=== PATIENT | female | born 1965 | race African-American/Black ===

== ENCOUNTER → 2016-07-10 16:04 | Outpatient (CLI) | payer MEDICARE, MEDICAID | END | disposition home or self-care (01) | LOC: D.LABREF 16:04 | DX: R60.0 Localized edema (principal); Z13.9 Encounter for screening, unspecified ==

== ENCOUNTER 2016-08-02 08:54 | Outpatient (CLI) | payer MEDICARE, MEDICAID | END 2016-08-02 10:50 | LOC: D.MAMMO 08:54 | DX: N63 Unspecified lump in breast (principal) ==

== ENCOUNTER 2016-11-12 13:16 | Emergency (ER) | payer MEDICARE, MEDICAID | END 2016-11-12 17:15 | disposition home or self-care (01) | LOC: D.ER 13:16 | DX: M79.662 Pain in left lower leg (principal); M17.12 Unilateral primary osteoarthritis, left knee; F17.200 Nicotine dependence, unspecified, uncomplicated ==

== ENCOUNTER 2016-12-11 16:41 | Emergency (ER) | payer MEDICARE, MEDICAID ==
[2016-12-11 17:06] LABS: BASOPHILS 0.4 % (0-2); EOSINOPHILS 4.7 % (0-7); HEMATOCRIT 42.3 % (36.0-48.0); HEMOGLOBIN 13.8 g/dL (12-16); IMMATURE GRANULOCYTES 0.2 % (0-5); LYMPHOCYTES 48.2 % (15-50); MCH 31.6 pg (26.0-34.0); MCHC 32.6 g/dL (31.0-37.0); MCV 96.8 fL (80.0-100.0); MEAN PLATELET VOLUME 11.6 fL (7.4-10.4); MONOCYTES 5.9 % (2-11); NEUTROPHILS 40.6 % (40-80); PLATELET COUNT 245 10x3/uL (130-400); RBC 4.37 10x6/uL (4.00-5.40); RDW 15.5 % (11.5-14.5)
[2016-12-11 17:31] LABS: ALBUMIN 3.1 g/dL (3.4-5.0); ALKALINE PHOSPHATASE 68 U/L (46-116); ALT (SGPT) 19 U/L (10-68); BILIRUBIN - TOTAL 0.14 mg/dL (0.2-1.3); CALC OSMOLALITY 284 mosm/kg (275-300); CALCIUM 8.2 mg/dL (8.5-10.1); CARBON DIOXIDE 28.3 mmol/L (21.0-32.0); CHLORIDE - SERUM 108 mmol/L (98-107); CREATININE - SERUM 1.1 mg/dL (0.6-1.3); GLUCOSE 108 mg/dL (74-106); POTASSIUM - SERUM 3.7 mmol/L (3.5-5.1); PROTEIN - SERUM 6.5 g/dL (6.4-8.2); SODIUM 143 mmol/L (136-145); UREA NITROGEN 10 mg/dL (7-18); eGFR NON AFRICAN AMERICAN 55 mL/min (90-120)
[2016-12-11 17:42] LABS: CKMB 0.9 U/L (0.0-3.6); CREATINE KINASE 286 UL (21-215); TROPONIN-I < 0.017 ng/mL (0.000-0.060)
[2016-12-11 18:23] LABS: APPEARANCE CLEAR (CLEAR); BILIRUBIN NEGATIVE (NEGATIVE); COLOR YELLOW (YELLOW); GLUCOSE NEGATIVE (NEGATIVE); KETONE NEGATIVE (NEGATIVE); NITRITE NEGATIVE (NEGATIVE); PROTEIN NEGATIVE (NEGATIVE); SPECIFIC GRAVITY 1.015 (1.005-1.020); UROBILINOGEN NORMAL (NORMAL)
[2016-12-11 18:25] LABS: BACTERIA MODERATE /hpf (NONE SEEN); EPITHELIAL CELLS 0-5 /hpf (0-5); MUCUS <1+ /lpf (NONE SEEN); RED CELLS - URINE 0-5 /hpf (0-5); WHITE CELLS - URINE 0-5 /hpf (0-5)
== END 2016-12-11 22:09 | disposition home or self-care (01) ==
LOC: D.ER 16:41
PROVIDERS: Nurse Practitioner Family
DX: R07.89 Other chest pain (principal); F17.200 Nicotine dependence, unspecified, uncomplicated; I44.5 Left posterior fascicular block

== ENCOUNTER → 2017-02-03 08:23 | Outpatient (CLI) | payer MEDICARE, MEDICAID | END | disposition home or self-care (01) | LOC: D.MRI 08:23 | DX: M25.562 Pain in left knee (principal) ==

== ENCOUNTER 2017-03-19 07:31 | Emergency (ER) | payer MEDICARE, MEDICAID ==
[2017-03-19 08:24] LABS: BASOPHILS 0.4 % (0-2); EOSINOPHILS 4.2 % (0-7); HEMATOCRIT 42.8 % (36.0-48.0); IMMATURE GRANULOCYTES 0.1 % (0-5); LYMPHOCYTES 37.7 % (15-50); MCH 30.6 pg (26.0-34.0); MCHC 32.7 g/dL (31.0-37.0); MCV 93.7 fL (80.0-100.0); MEAN PLATELET VOLUME 11.2 fL (7.4-10.4); MONOCYTES 6.5 % (2-11); NEUTROPHILS 51.1 % (40-80); PLATELET COUNT 292 10x3/uL (130-400); RBC 4.57 10x6/uL (4.00-5.40); RDW 14.2 % (11.5-14.5); WBC 8.2 10x3/uL (4.8-10.8)
[2017-03-19 08:34] LABS: ALBUMIN 3.4 g/dL (3.4-5.0); ANION GAP 10.1 mmol/L (8-16); BILIRUBIN - TOTAL 0.27 mg/dL (0.2-1.3); CALCIUM 8.7 mg/dL (8.5-10.1); CARBON DIOXIDE 34.6 mmol/L (21.0-32.0); CREATININE - SERUM 1.1 mg/dL (0.6-1.3); POTASSIUM - SERUM 3.7 mmol/L (3.5-5.1); PROTEIN - SERUM 7.3 g/dL (6.4-8.2)
== END 2017-03-19 09:20 | disposition home or self-care (01) ==
LOC: D.ER 07:31
PROVIDERS: Emergency Medicine
DX: M79.1 Myalgia (principal)

== ENCOUNTER → 2017-04-08 08:07 | Outpatient (CLI) | payer MEDICARE, MEDICAID | END | disposition home or self-care (01) | LOC: D.LAB 08:07 | DX: R31.1 Benign essential microscopic hematuria (principal) ==

== ENCOUNTER 2018-03-24 06:32 | Inpatient (IN) | payer MEDICARE ==
[~2018-03-24] VITALS: Ht 165.1 cm; Wt 133.8 kg
--- NOTE | 2018-03-24 06:45 | NUR ---
FLU SWAB AND STREP SWAB SENT TO LAB
--- NOTE | 2018-03-24 07:02 | NUR ---
REPORT GIVEN TO BALJINDER COLEMAN
[2018-03-24 07:12] LABS: ALBUMIN 3.2 g/dL (3.4-5.0); ANION GAP 13.6 mmol/L (8-16); BILIRUBIN - TOTAL 0.48 mg/dL (0.2-1.3); CALCIUM 7.8 mg/dL (8.5-10.1); CARBON DIOXIDE 25.9 mmol/L (21.0-32.0); CREATININE - SERUM 0.9 mg/dL (0.6-1.3); POTASSIUM - SERUM 3.5 mmol/L (3.5-5.1); PROTEIN - SERUM 7.2 g/dL (6.4-8.2)
[2018-03-24 07:13] LABS: BASOPHILS 0.2 % (0-2); EOSINOPHILS 2.2 % (0-7); HEMATOCRIT 40.5 % (36.0-48.0); HEMOGLOBIN 13.1 g/dL (12-16); IMMATURE GRANULOCYTES 0.3 % (0-5); LYMPHOCYTES 10.8 % (15-50); MCHC 32.3 g/dL (31.0-37.0); MCV 89.6 fL (80.0-100.0); MEAN PLATELET VOLUME 11.2 fL (7.4-10.4); MONOCYTES 4.1 % (2-11); NEUTROPHILS 82.4 % (40-80); PLATELET COUNT 257 10x3/uL (130-400); RBC 4.52 10x6/uL (4.00-5.40); RDW 16.3 % (11.5-14.5); WBC 12.1 10x3/uL (4.8-10.8)
[2018-03-24 07:23] LABS: PRO BNP 259 pg/mL (0-125); TROPONIN-I < 0.017 ng/mL (0.000-0.060)
--- NOTE | 2018-03-24 08:50 | NUR ---
ROCEPHIN INFUSION COMPLETED AT 0856
--- NOTE | 2018-03-24 09:55 | NUR ---
ZITHROMAX INFUSION COMPLETED AND STOPPED.
[2018-03-24 10:02] VITALS: BP 146/98
--- NOTE | 2018-03-24 11:36 | NUR ---
LUNCH TRAY PROV. PT C/O NAUSEA. PRN ZOFRAN TO BE ADMINISTERED PER EMAR.
[2018-03-24] MEDS ORDERED: SYNTHROID125 MCG PO (15:28)
[2018-03-24] MEDS ORDERED: VITAMIN D31000 UNI2 PO (15:29)
[2018-03-24] MEDS ORDERED: PRAVACHOL80 MG PO (15:30)
[2018-03-24 15:31] VITALS: BMI 49.1
--- NOTE | 2018-03-24 19:18 | NUR ---
PATIENT IS RESTING IN HER BED. BED IS DOWN LOW WITH SIDE RAILS ARE UP X2. CALL LIGHT IS IN REACH.
[2018-03-24 20:00] VITALS: BP 140/89
[2018-03-24 23:30] VITALS: BP 129/53
--- NOTE | 2018-03-25 04:06 | NUR ---
PATIENT IS SLEEPING. BED IS DOWN LOW WITH SIDE RAILS UP X2. CALL LIGHT IS IN REACH.
[2018-03-25 04:30] VITALS: BP 142/68
[2018-03-25 05:56] LABS: BASOPHILS 0 % (0-2); EOSINOPHILS 0 % (0-7); HEMOGLOBIN 12.2 g/dL (12-16); IMMATURE GRANULOCYTES 0.3 % (0-5); LYMPHOCYTES 11.2 % (15-50); MCH 28.9 pg (26.0-34.0); MCHC 32.1 g/dL (31.0-37.0); MEAN PLATELET VOLUME 11.7 fL (7.4-10.4); MONOCYTES 2.1 % (2-11); NEUTROPHILS 86.4 % (40-80); PLATELET COUNT 262 10x3/uL (130-400); RBC 4.22 10x6/uL (4.00-5.40); RDW 17.1 % (11.5-14.5)
[2018-03-25 05:59] LABS: WBC 6.5 10x3/uL (4.8-10.8)
[2018-03-25 06:21] LABS: ALBUMIN 2.9 g/dL (3.4-5.0); ANION GAP 14.6 mmol/L (8-16); BILIRUBIN - TOTAL 0.19 mg/dL (0.2-1.3); CALCIUM 7.8 mg/dL (8.5-10.1); CARBON DIOXIDE 24.7 mmol/L (21.0-32.0)
[2018-03-25 06:22] LABS: POTASSIUM - SERUM 4.3 mmol/L (3.5-5.1)
[2018-03-25 09:50] VITALS: BP 130/57
--- NOTE | 2018-03-25 09:51 | MORECARE ---
CASE MANAGEMENT DISCHARGE SUMMARY PATIENT: DEYVI PHILLIPS UNIT: [id number] ADM DATE: 03/24/18 AGE: 52 : 61 SEX: F ROOM/BED: D.1210 AUTHOR: ARTURO SHEN PHYSICIAN: REFERRING PHYSICIAN: EMELY YANG DO DATE OF SERVICE: 03/25/18 Discharge Plan Patient Name: DEYVI [facility]ILLIPS [facility] [facility] 1965 Planned Disposition: Home Anticipated Discharge Date: Discharge Date: Expected LOS: Initial Reviewer: [email or web address] Initial Review Date: 03/25/2018 Generated: 03/25/18 10:51 am DCPIA - Discharge Planning Initial Assessment Updated by [email or web address]: Carlita Paz on 03/25/18 9:50 am * Is the patient Alert and Oriented? Yes * PCP REMINGTON * Pharmacy [facility] [address] * Preadmission Environment Home with Family * ADLs Independent * Equipment None * Community resources currently utilized None * Additional services required to return to the preadmission environment? No * Can the patient safely return to the preadmission environment? Yes * Has this patient been hospitalized within the prior 30 days at any hospital? No Patient Name: DEYVI PHILLIPS Page 24416 at 0951 All edits/amendments must be made on the electronic document DICTATION DATE: 03/25/18950 DIESEL PLANT OPERATOR: SANGEETHA 03/25/18950 RPT#: [id number] DC DATE: STATUS: ADM IN [facility] [address] [place] [address] END OF REPORT
[2018-03-25 20:00] VITALS: BP 142/57
[2018-03-26] VITALS: BP 128/67
--- NOTE | 2018-03-26 02:34 | NUR ---
THE PATIENT IS WATCHING TELEVISION AND APPEARS COMFORTABLE.
[2018-03-26 04:00] VITALS: BP 145/65
[2018-03-26 07:38] LABS: BASOPHILS 0.1 % (0-2); EOSINOPHILS 0 % (0-7); HEMATOCRIT 39.9 % (36.0-48.0); HEMOGLOBIN 12.5 g/dL (12-16); IMMATURE GRANULOCYTES 0.2 % (0-5); LYMPHOCYTES 13.7 % (15-50); MCH 28.8 pg (26.0-34.0); MCHC 31.3 g/dL (31.0-37.0); MCV 91.9 fL (80.0-100.0); MEAN PLATELET VOLUME 11.2 fL (7.4-10.4); MONOCYTES 8.5 % (2-11); NEUTROPHILS 77.5 % (40-80); PLATELET COUNT 255 10x3/uL (130-400); RBC 4.34 10x6/uL (4.00-5.40); RDW 17.3 % (11.5-14.5)
[2018-03-26 07:42] LABS: WBC 9.1 10x3/uL (4.8-10.8)
--- NOTE | 2018-03-26 07:50 | NUR ---
ASSESSMENT COMPLETE. IV TO L AC PATENT. DROPLET ISOLATION PRECAUTIONS IN PLACE. O2 2L NC IN PLACE. NON-PRODUCTIVE COUGH. DENIES ANY NEEDS AT THIS TIME.
[2018-03-26 07:57] LABS: ANION GAP 16.2 mmol/L (8-16); BILIRUBIN - TOTAL 0.15 mg/dL (0.2-1.3); CARBON DIOXIDE 24.4 mmol/L (21.0-32.0); CREATININE - SERUM 0.9 mg/dL (0.6-1.3); POTASSIUM - SERUM 4.6 mmol/L (3.5-5.1); PROTEIN - SERUM 6.7 g/dL (6.4-8.2)
[2018-03-26 10:06] VITALS: BP 146/65
--- NOTE | 2018-03-26 12:00 | NUR ---
NO CHANGES NOTED AT THIS TIME.
[2018-03-26 12:19] VITALS: BP 154/68
[2018-03-26 13:39] VITALS: Ht 165.1 cm; Wt 133.8 kg
--- NOTE | 2018-03-26 14:14 | NUR ---
NO CHANGES NOTED.
[2018-03-26 17:44] VITALS: BP 158/68
--- NOTE | 2018-03-26 18:55 | NUR ---
NO CHANGES NOTED AT THIS TIME.
[2018-03-26 21:13] VITALS: BP 155/75
[2018-03-27 07:51] LABS: ALBUMIN 2.8 g/dL (3.4-5.0); ALKALINE PHOSPHATASE 75 U/L (46-116); ALT (SGPT) 20 U/L (10-68); BILIRUBIN - TOTAL 0.19 mg/dL (0.2-1.3); CALC OSMOLALITY 286 mosm/kg (275-300); CALCIUM 7.7 mg/dL (8.5-10.1); CHLORIDE - SERUM 105 mmol/L (98-107); CREATININE - SERUM 0.8 mg/dL (0.6-1.3); GLUCOSE 183 mg/dL (74-106); POTASSIUM - SERUM 4.1 mmol/L (3.5-5.1); PROTEIN - SERUM 6.5 g/dL (6.4-8.2); SODIUM 141 mmol/L (136-145); UREA NITROGEN 16 mg/dL (7-18); eGFR NON AFRICAN AMERICAN 79 mL/min (90-120)
[2018-03-27 07:52] LABS: BASOPHILS 0 % (0-2); EOSINOPHILS 0 % (0-7); HEMOGLOBIN 11.9 g/dL (12-16); IMMATURE GRANULOCYTES 0.3 % (0-5); LYMPHOCYTES 15.9 % (15-50); MCH 28.4 pg (26.0-34.0); MCHC 31.3 g/dL (31.0-37.0); MCV 90.7 fL (80.0-100.0); MONOCYTES 7.5 % (2-11); NEUTROPHILS 76.3 % (40-80); PLATELET COUNT 269 10x3/uL (130-400); RBC 4.19 10x6/uL (4.00-5.40); RDW 17.2 % (11.5-14.5); WBC 7.4 10x3/uL (4.8-10.8)
[2018-03-27 08:00] VITALS: BP 133/52
[2018-03-27] MEDS ORDERED: TAMIFLU75 MG PO (11:45)
[2018-03-27] MEDS ORDERED: TESSALON PERLE100 MG PO (11:46)
[2018-03-27] MEDS ORDERED: MUCINEX600 MG PO (11:46)
[2018-03-27] MEDS ORDERED: VENTOLIN HFA18 GM INH (11:46)
[2018-03-27] MEDS ORDERED: STERAPRED DS 1010 MG PO (11:47)
[2018-03-27] MEDS ORDERED: DOXYCYCLINE HY100 M2 PO (11:47)
[2018-03-27 12:00] VITALS: BP 155/66
--- NOTE | 2018-03-27 14:21 | NUR ---
D/C PTS L.AC PIV WITH CATHETER TIP FULLY INTACT. PT IS COLLECTING HER BELONGINGS AND WAITING ON HER TRANSPORTATION. DISCHARGE TEACHING PROVIDED AND PAPERS SIGNED. PT VERBALIZED UNDERSTANDING AND DENIES ANY QUESTIONS OR CONERNS. WILL CTM.
--- NOTE | 2018-03-27 16:12 | MORECARE ---
CASE MANAGEMENT DISCHARGE SUMMARY PATIENT: DEYVI PHILLIPS UNIT: [id number] ADM DATE: 03/24/18 AGE: 52 : 61 SEX: F ROOM/BED: D.1210 AUTHOR: ARTURO SHEN PHYSICIAN: REFERRING PHYSICIAN: EMELY YANG DO DATE OF SERVICE: 03/27/18 Discharge Plan Patient Name: DEYVI PHILLIPS Facility: [facility]:[place] : 1965 Planned Disposition: Home Anticipated Discharge Date: Discharge Date: 03/27/2018 Expected LOS: Initial Reviewer: [email or web address] Initial Review Date: 03/25/2018 Generated: 03/27/18 5:12 pm Comments DCP- Discharge Planning Updated by [email or web address]: Carlita Paz on 03/25/18 8:[address] Patient Name: DEYVI PHILLIPS Admission Status: ER Accout number: [id number] Admission Date: 03-24-2018 : 1965 Admission Diagnosis: Attending: EMELY YANG Current LOS: 1 Anticipated DC Date: Planned Disposition: Home Primary Insurance: MEDICARE A & B Discharge Planning Comments: CM MET WITH PATIENT ABOUT DC PLANNING/NEEDS. STATES PLANS TO DC TO HOME WITH FAMILY WHEN BETTER. DENIES ANY NEEDS AT THIS TIME. CM WILL FOLLOW AND ASSIST NEEDED WITH DC PLANNING/NEEDS. Basket Braider: Carlita Paz DCPIA - Discharge Planning Initial Assessment Updated by [email or web address]: Carlita Paz on 03/25/18 9:50 am * Is the patient Alert and Oriented? Yes * PCP ALIYAHO * Pharmacy [facility] [address] * Preadmission Environment Home with Family * ADLs Independent * Equipment None * Community resources currently utilized None * Additional services required to return to the preadmission environment? No * Can the patient safely return to the preadmission environment? Yes * Has this patient been hospitalized within the prior 30 days at any hospital? No Last DP export: 03/25/18 8:51 a Patient Name: DEYVI PHILLIPS Page 58906 at 1612 All edits/amendments must be made on the electronic document DICTATION DATE: 03/27/18 1612 CURING PICKLING PACKER: SANGEETHA 03/27/18 1612 RPT#: [id number] DC DATE:03/27/18 STATUS: DIS IN [facility] [address] [place] [address] END OF REPORT
== END 2018-03-27 15:18 | disposition home or self-care (01) | DRG 193 ==
LOC: D.ER 06:32 → D.EDHOLD 08:17 → D.M3 08:17
PROVIDERS: Family Medicine; ADMIT Family Medicine
DX: J10.00 Influenza due to other identified influenza virus with unspecified type of pneumonia (principal); J96.01 Acute respiratory failure with hypoxia; Z68.42 Body mass index [BMI] 45.0-49.9, adult; E86.0 Dehydration; I10 Essential (primary) hypertension; E66.9 Obesity, unspecified

== ENCOUNTER → 2018-08-14 10:52 | Outpatient (CLI) | payer MEDICARE ==
[2018-03-26 13:39] VITALS: BMI 49.0
[~2018-08-14 10:52] MED LIST: DOXYCYCLINE HY100 M2 PO; MUCINEX600 MG PO; PRAVACHOL80 MG PO; STERAPRED DS 1010 MG PO; SYNTHROID125 MCG PO; TAMIFLU75 MG PO; TESSALON PERLE100 MG PO; VENTOLIN HFA18 GM INH; VITAMIN D31000 UNI2 PO
== END | disposition home or self-care (01) ==
LOC: D.MRI 08-11 11:30
PROVIDERS: ATTEND Nurse Practitioner Family
DX: M25.562 Pain in left knee (principal)

== ENCOUNTER → 2018-08-18 15:46 | Outpatient (CLI) | payer MEDICARE ==
[2018-03-26 13:39] VITALS: BMI 49.0
== END | disposition home or self-care (01) ==
LOC: D.LABREF 15:46
PROVIDERS: ATTEND Orthopaedic Surgery
DX: M17.12 Unilateral primary osteoarthritis, left knee (principal); Z11.8 Encounter for screening for other infectious and parasitic diseases

== ENCOUNTER 2018-09-09 16:33 | Inpatient (IN) | payer MEDICARE ==
[~2018-09-09] VITALS: Ht 165.1 cm; Wt 135.2 kg
[2018-09-15] MEDS ORDERED: LIPITOR20 MG PO (16:12)
[2018-09-15] MEDS ORDERED: CALCIUM 600 +1 EAC3 PO (16:13)
[2018-09-16 09:13] LABS: BASOPHILS 0.6 % (0-2); EOSINOPHILS 3.4 % (0-7); HEMOGLOBIN 13.3 g/dL (12-16); IMMATURE GRANULOCYTES 0.2 % (0-5); LYMPHOCYTES 38.5 % (15-50); MCH 30.4 pg (26.0-34.0); MCHC 33.3 g/dL (31.0-37.0); MCV 91.3 fL (80.0-100.0); MEAN PLATELET VOLUME 11.1 fL (7.4-10.4); MONOCYTES 7.3 % (2-11); RBC 4.38 10x6/uL (4.00-5.40); RDW 15.8 % (11.5-14.5); WBC 8.8 10x3/uL (4.8-10.8)
[2018-09-16 09:16] LABS: PLATELET COUNT 207 10x3/uL (130-400)
[2018-09-16 09:19] LABS: CALC OSMOLALITY 283 mosm/kg (275-300); CALCIUM 7.8 mg/dL (8.5-10.1); CHLORIDE - SERUM 108 mmol/L (98-107); CREATININE - SERUM 0.8 mg/dL (0.6-1.3); SODIUM 142 mmol/L (136-145); UREA NITROGEN 13 mg/dL (7-18); eGFR NON AFRICAN AMERICAN 79 mL/min (90-120)
[2018-09-16 09:21] LABS: GLUCOSE 119 mg/dL (74-106)
[2018-09-16 09:24] LABS: APTT 26.1 SECONDS (22.8-39.4); INR 1.01 (0.85-1.17); PROTIME 12.8 SECONDS (11.6-15.0)
[2018-09-16 10:02] LABS: APPEARANCE CLEAR (CLEAR); BILIRUBIN NEGATIVE (NEGATIVE); COLOR YELLOW (YELLOW); GLUCOSE NEGATIVE (NEGATIVE); KETONE NEGATIVE (NEGATIVE); NITRITE NEGATIVE (NEGATIVE); PROTEIN NEGATIVE (NEGATIVE); SPECIFIC GRAVITY 1.015 (1.005-1.020); UROBILINOGEN NORMAL (NORMAL)
[2018-09-16 10:06] LABS: BACTERIA FEW /hpf (NONE SEEN); EPITHELIAL CELLS OCC /hpf (0-5); MUCUS <1+ /lpf (NONE SEEN); RED CELLS - URINE OCC /hpf (0-5); WHITE CELLS - URINE NSEEN /hpf (0-5)
[2018-09-22 13:35] VITALS: BP 134/72; BMI 49.6
--- NOTE | 2018-09-22 15:20 | NUR ---
PLASMA BLADE SET TO 6/8 BOVIE PAD RIGHT THIGH [id number] EXP 03/18/2020 PREPPED LEFT LEG FROM UPPER THIGH TO TOES CIRCUMFERENTIALLY
[2018-09-22 17:56] VITALS: BP 137/69
--- NOTE | 2018-09-22 20:28 | NUR ---
AROUSES EASILLY TO VERBAL STIMULI. NO COMPLAITNS VOICED. RESP UNLABORED. O2 @ 2L PER NC ON. NO DISTRESS NOTED. CHILO WRAP INTACT TO LEFT KNEE WITHOUT DRAINAGE NOTED. CPM PLACED ON LLE AT THIS TIME. CL IN REACH
[2018-09-22 23:41] VITALS: BP 137/69; BMI 49.6
--- NOTE | 2018-09-23 03:30 | NUR ---
I have reviewed this patient and I concur with the Shift Assessment completed by the Licensed Practical Nurse today this shift.
[2018-09-23 04:00] VITALS: BP 118/58
--- NOTE | 2018-09-23 04:30 | NUR ---
I have reviewed this patient and I concur with the Shift Assessment completed by the Licensed Practical Nurse today this shift.
[2018-09-23 04:40] LABS: BASOPHILS 0.2 % (0-2); EOSINOPHILS 0.1 % (0-7); HEMATOCRIT 36.4 % (36.0-48.0); HEMOGLOBIN 11.8 g/dL (12-16); IMMATURE GRANULOCYTES 0.4 % (0-5); LYMPHOCYTES 11.8 % (15-50); MCH 29.8 pg (26.0-34.0); MCHC 32.4 g/dL (31.0-37.0); MCV 91.9 fL (80.0-100.0); MEAN PLATELET VOLUME 10.8 fL (7.4-10.4); MONOCYTES 5.3 % (2-11); NEUTROPHILS 82.2 % (40-80); RBC 3.96 10x6/uL (4.00-5.40); RDW 16.1 % (11.5-14.5); WBC 11.3 10x3/uL (4.8-10.8)
[2018-09-23 04:52] LABS: PLATELET COUNT 254 10x3/uL (130-400)
[2018-09-23 05:07] LABS: ALBUMIN 2.7 g/dL (3.4-5.0); ANION GAP 8.9 mmol/L (8-16); BILIRUBIN - TOTAL 0.2 mg/dL (0.2-1.3); CALCIUM 7.3 mg/dL (8.5-10.1); CARBON DIOXIDE 28.9 mmol/L (21.0-32.0); CREATININE - SERUM 0.9 mg/dL (0.6-1.3); POTASSIUM - SERUM 4.8 mmol/L (3.5-5.1)
[2018-09-23 08:43] VITALS: BP 134/59
[2018-09-23 12:43] VITALS: BP 130/58
[2018-09-23 14:46] VITALS: BP 131/67
--- NOTE | 2018-09-23 14:56 | OP ---
PATIENT NAME: DEYVI GONZALES MEDICAL RECORD: [id number] :61 LOCATION:D[id number] ADMISSION DATE:09/22/18 SURGEON: EUGENE ONEILL DO DATE OF OPERATION: 09/22/2018 PROCEDURE PERFORMED: Left total knee arthroplasty. PREOPERATIVE DIAGNOSIS: Left knee osteoarthritis. POSTOPERATIVE DIAGNOSIS: Left knee osteoarthritis. INDICATION: Ms. Gonzales is a 53-year-old female that has tried all manners of nonoperative treatment including injections and home physical therapy to no avail. She is tired of it affecting her activities of daily living and would like something done surgically. She was informed of the risks including infection, bleeding, damage to nerves and vessels, need for further surgery, failure of implants, blood clots, and even . She signed the consent. SURGEON: Eugene Oneill DO DESCRIPTION OF PROCEDURE: The patient was taken to the operative suite. After getting a block by anesthesia in the preoperative area, given 3 grams of Ancef and 80 mg of gentamicin preoperatively. The left lower extremity was then prepped and draped in sterile fashion after she was sedated and LMA was placed. Time-out was performed and everyone was in agreement of correct side, site, patient, and procedure. An incision was then marked on the anterior knee and covered in Ioban. A 10 blade scalpel was then used to dissect down from the skin down to the capsule. The medial parapatellar approach was used with a fresh 10 blade scalpel. Any bleeders were coagulated with the Aquamantys. The patella was then everted and part of the fat pad was removed and milled down in order to fit the implant. The femur was then flexed up and exposed. The drill was used to enter the femoral canal and a distal femur cut was made. The distal femur was then removed and the tibia was then cut. Once the proximal tibia was removed, the knee was brought to extension and a lamina securities sales associate was used to spread the knee and the menisci were removed. Any bleeding was coagulated with Aquamantys and then a 10 extension block fit very well. The knee was then flexed up and the knee was measured to be 65. A 4-in-1 cutting block was then put. Matthew wing was used to ensure there was no notching and the 65 was cut. The excess bone was removed. The implant trial was put on and the tibia was floated in and ranged. Once this was floated in and ranged, the rotation was marked. The tibial component was removed and trial was removed and the patella was drilled. The lugholes were then drilled on the femur and this was removed. The tibia was then exposed and sized to be 71. A cruciate punch was then used and then the cement was mixed. The knee was thoroughly irrigated and the 71 tibia was impacted into place with cement on that in the tibia. Excess cement was removed and the femur was impacted on. Once the femur was impacted into place, the poly was put in between. The knee was brought to extension and the patella was cemented in. A squeezer was held while the cement dried on the patella. Excess cement was removed from it and on the tibia at that time. The knee was thoroughly irrigated and bleeding was coagulated with Aquamantys. After the cement had hardened, I then trialed the 10 poly and it fit pretty well, but the 12 was better, I went with 12 E-poly, anterior stabilized bearing, and this was locked into place. Once this was locked into place, vancomycin and tobramycin powder was placed in the knee as well as Surgicel powder. Then, the capsule was closed with 2-0 Ethibond in a [id number] fashion. The skin was OPERATIVE REPORT [id number] DEYVI GONZALES then closed with 2-0 Vicryl in an inverted interrupted fashion. A ZipLine was placed on the knee. Adaptic, 4 x 4s, ABD, Webril, and Donnell wrap were then placed on the knee. SP hose stockings were placed on the knee. The patient was awakened and taken to recovery in stable condition. BLOOD LOSS: Approximately 350 mL. COMPLICATIONS: None. TRANSINT:[id number] Voice Confirmation ID: [id number] DOCUMENT ID: [id number] EUGNEE ONEILL DO at 1456 CC: [id number] DICTATION DATE: 09/22/181648 BUCKLE STRAP PUNCHER: 09/22/182103 [facility] [place] [address] [place] [address]
[2018-09-23 20:00] VITALS: BP 156/63
--- NOTE | 2018-09-23 20:37 | NUR ---
AWAKE,ALERT.WATCHING TV WITHOUT COMPLAINTS VOICED. RESP EVEN AND UNALBORED. NO DISTRESS NOTED. CHILO WRAP DRESSING INTACT TO LEFT KNEE WIHTOUT DRAINAGE NOTED. CPM IN PROGRESS AT THIS TIME. TOLERATING WELL. CL IN REACH
[2018-09-24] VITALS: BP 129/85
[2018-09-24 03:53] VITALS: BP 111/70
[2018-09-24 05:01] LABS: BASOPHILS 0.2 % (0-2); EOSINOPHILS 1.9 % (0-7); HEMATOCRIT 33.5 % (36.0-48.0); HEMOGLOBIN 10.8 g/dL (12-16); IMMATURE GRANULOCYTES 0.3 % (0-5); LYMPHOCYTES 33.4 % (15-50); MCH 29.9 pg (26.0-34.0); MCHC 32.2 g/dL (31.0-37.0); MCV 92.8 fL (80.0-100.0); MEAN PLATELET VOLUME 11.1 fL (7.4-10.4); MONOCYTES 9.1 % (2-11); NEUTROPHILS 55.1 % (40-80); PLATELET COUNT 229 10x3/uL (130-400); RBC 3.61 10x6/uL (4.00-5.40); RDW 16.3 % (11.5-14.5)
[2018-09-24 05:23] LABS: ALBUMIN 2.6 g/dL (3.4-5.0); ANION GAP 6.1 mmol/L (8-16); BILIRUBIN - TOTAL 0.21 mg/dL (0.2-1.3); CALCIUM 7.2 mg/dL (8.5-10.1); CARBON DIOXIDE 32.1 mmol/L (21.0-32.0); CREATININE - SERUM 0.9 mg/dL (0.6-1.3); POTASSIUM - SERUM 4.2 mmol/L (3.5-5.1); PROTEIN - SERUM 5.8 g/dL (6.4-8.2)
[2018-09-24 10:02] VITALS: BP 131/67
[2018-09-24 13:20] VITALS: BP 140/74
[2018-09-24 16:59] VITALS: BP 135/73
[2018-09-24 21:44] VITALS: BP 138/50
[2018-09-25 00:56] VITALS: BP 146/50
[2018-09-25 05:00] VITALS: BP 135/65
[2018-09-25 05:58] LABS: BASOPHILS 0.2 % (0-2); EOSINOPHILS 2.5 % (0-7); HEMATOCRIT 33.9 % (36.0-48.0); HEMOGLOBIN 10.7 g/dL (12-16); IMMATURE GRANULOCYTES 0.2 % (0-5); LYMPHOCYTES 32.6 % (15-50); MCH 29.9 pg (26.0-34.0); MCHC 31.6 g/dL (31.0-37.0); MCV 94.7 fL (80.0-100.0); MEAN PLATELET VOLUME 11.1 fL (7.4-10.4); MONOCYTES 9.9 % (2-11); NEUTROPHILS 54.6 % (40-80); PLATELET COUNT 217 10x3/uL (130-400); RBC 3.58 10x6/uL (4.00-5.40); RDW 16.6 % (11.5-14.5); WBC 9.1 10x3/uL (4.8-10.8)
--- NOTE | 2018-09-25 06:08 | NUR ---
I have reviewed this patient and I concur with the Shift Assessment completed by the Licensed Practical Nurse today this shift.
[2018-09-25 06:17] LABS: ALBUMIN 2.6 g/dL (3.4-5.0); ANION GAP 7.9 mmol/L (8-16); BILIRUBIN - TOTAL 0.3 mg/dL (0.2-1.3); CALCIUM 7.4 mg/dL (8.5-10.1); CREATININE - SERUM 0.9 mg/dL (0.6-1.3); POTASSIUM - SERUM 3.9 mmol/L (3.5-5.1); PROTEIN - SERUM 5.8 g/dL (6.4-8.2)
--- NOTE | 2018-09-25 07:33 | NUR ---
AWAKE AND ALERT. ORIENTED X3. NO C/O AT THIS TIME. CPM HAS MALFUNCTIONED AND IS OFF. LUNGS ARE CLEAR BILATERALLY, NO COUGH NOTED. SKIN IS INTACT WITHOUT REDNESS EXCEPT INCISION TO LEFT KNEE WHICH HAS A DRY INTACT DRESSING IN PLACE. SL TO LEFT FOREARM IS PATENT WTIHOUT REDNESS AT INSERTION SITE. UP TO BR WIHT ONE PERSON MIN ASSIST. DENIES NEEDS.
--- NOTE | 2018-09-25 07:45 | NUR ---
REQUESTED BREAKTHRU PAIN MED. GIVEN 15MG TORADOL SLOW IVP FOR SAME. WILL MONITOR.
[2018-09-25 09:22] VITALS: BP 147/60
--- NOTE | 2018-09-25 10:00 | NUR ---
AMBULATED IN HALLWAY WITH PT. DENIES NEEDS.
--- NOTE | 2018-09-25 12:30 | NUR ---
ATE MOST OF LUNCH. NO CHANGES NOTED. DENIES NEEDS.
--- NOTE | 2018-09-25 12:32 | NUR ---
OT NOTE: MIN ASSIST FOR BED MOB; ABLE TO AMB WITH RW AND MIN/CGA, HOWEVER, ONLY ABLE TO AMB APPROX 50-60 FT BEFORE NEEDING TO SIT DOWN DUE TO FATIGE. PT EXPLAINS TO THERAPIST THAT SHE WILL BE GOING HOME ALONE HER FAMILY WORKS DURING THE DAY. STATES THAT SHE IS FEARFUL OF RETURNING HOME ALONE BECAUSE SHE FEELS THAT SHE WILL BE UNABLE TO CARE FOR HERSELF WHEN IT COMES TO BATHING AND PREPARING MEALS. SHE STATES THAT SHE FEELS WEAKER AND IS MORE EASILY SOB THAN PRIOR TO SURGERY. RIK ANDERSON, OTR/L
[2018-09-25 12:48] VITALS: BP 119/49
[2018-09-25 13:06] VITALS: Ht 165.1 cm; Wt 135.2 kg
--- NOTE | 2018-09-25 14:06 | MORECARE ---
CASE MANAGEMENT DISCHARGE SUMMARY PATIENT: DEYVI PHILLIPS UNIT: [id number] ADM DATE: 09/22/18 AGE: 53 : 61 SEX: F ROOM/BED: D.2205 AUTHOR: ARTURO SHEN PHYSICIAN: REFERRING PHYSICIAN: CARTER ONEILL DO DATE OF SERVICE: 09/25/18 Discharge Plan Patient Name: DEYVI PHILLIPS [facility] [facility] 1965 Planned Disposition: [facility]it[facility] Facility Anticipated Discharge Date: Discharge Date: Expected LOS: Initial Reviewer: [email or web address] Initial Review Date: 09/22/2018 Generated: 09/25/18 3:06 pm DCPIA - Discharge Planning Initial Assessment Updated by [email or web address]: Cora Solis on 09/25/18 2:04 pm * Is the patient Alert and Oriented? Yes * How many steps to enter\exit or inside your home? * PCP REMINGTON * [facility] * Preadmission Environment Home Alone * ADLs Independent * Equipment Bedside Commode Rolling Walker * List name and contact numbers for known caregivers / representatives who currently or will assist patient after discharge: CPM ICE MACHINE * Verbal permission to speak to the caregivers and representatives has been obtained from the patient. N/A * Community resources currently utilized None * Additional services required to return to the preadmission environment? Yes * Can the patient safely return to the preadmission environment? No * Has this patient been hospitalized within the prior 30 days at any hospital? No External Providers External Provider: [facility] Next Contact Date: Service Request Date: Service Type: Resolution: Reviewer: Comments: Patient Name: DEYVI PHILLIPS Page 32650 at 1406 All edits/amendments must be made on the electronic document DICTATION DATE: 09/25/181404 PROPERTY MANAGEMENT SUPERVISOR: ASNGEETHA 09/25/18 140 RPT#: [id number] DC DATE: STATUS: ADM IN [facility] [address] [place] [address] END OF REPORT
--- NOTE | 2018-09-25 14:14 | MORECARE ---
CASE MANAGEMENT DISCHARGE SUMMARY PATIENT: DEYVI PHILLIPS UNIT: [id number] ADM DATE: 09/22/18 AGE: 53 : 61 SEX: F ROOM/BED: D.220 AUTHOR: ACDOC PHYSICIAN: REFERRING PHYSICIAN: CARTER ONEILL DO DATE OF SERVICE: 09/25/18 Discharge Plan Patient Name: DEYVI PHILLIPS Facility: [facility]:[place] : 1965 Planned Disposition: Nursing Home Facility Anticipated Discharge Date: Discharge Date: Expected LOS: Initial Reviewer: [email or web address] Initial Review Date: 09/22/2018 Generated: 09/25/18 3:14 pm Comments DCP- Discharge Planning Updated by [email or web address]: Cora Solis on 09/25/18 1:[address] Patient Name: DEYVI PHILLIPS Admission Status: Elective Accout number: [id number] Admission Date: 09-22-2018 : 1965 Admission Diagnosis:UNILATERAL PRIMARY OSTEOARTHRITIS, LEFT KNEE Attending: CARTER ONEILL Current LOS: 3 Anticipated DC Date: Planned Disposition: Nursing Home Facility Primary Insurance: [facility] MEDICARE SOLUTIONS Discharge Planning Comments: CM met with patient to complete initial dc planning assessment. CM educated patient on the CM role and verbal consent given by patient to complete assessment. Patient lives at home where she is independent with her care. She does live home alone. At discharge patient plans to go to [facility] to do her rehab and feels this is a safe discharge. CM discussed availability of home health, rehab services, and medical equipment. She has a walker and a BSC, CPM and Ice Machine that was set up be Dr Oneill's office. IMM served and explained. SOUTH signed and placed in chart. Patient denied known discharge needs at this time. CM will continue to follow and will assist as needed with dc plans/needs. Paper Sorter: Cora Solis DCPIA - Discharge Planning Initial Assessment Updated by [email or web address]: Cora Solis on 09/25/18 2:04 pm * Is the patient Alert and Oriented? Yes * How many steps to enter\exit or inside your home? * PCP REMINGTON * [facility] [address] * Preadmission Environment Home Alone * ADLs Independent * Equipment Bedside Commode Rolling Walker * List name and contact numbers for known caregivers / representatives who currently or will assist patient after discharge: CPM ICE MACHINE * Verbal permission to speak to the caregivers and representatives has been obtained from the patient. N/A * Community resources currently utilized None * Additional services required to return to the preadmission environment? Yes * Can the patient safely return to the preadmission environment? No * Has this patient been hospitalized within the prior 30 days at any hospital? No Coverage Notice Reviewer: [email or web address] Solis Notice Issued Date-Time: 09/25/2018 8:50 Notice Type: IM Discharge Notice Notice Delivered To: Patient Relationship to Patient: Website Developer Name: Delivery Method: HAND - Hand Delivered Divya Days: Prior Verbal Notification: Recipient Understood Notice: Yes Recipient Signature: Yes Med Rec Note Co-signed by Attending: Coverage Notice Comment: Reviewer: AMERICA Solis Notice Issued Date-Time: 09/25/2018 8:50 Notice Type: Patient Choice Letter Notice Delivered To: Patient Relationship to Patient: Website Developer Name: Delivery Method: HAND - Hand Delivered Idvya Days: Prior Verbal Notification: Recipient Understood Notice: Yes Recipient Signature: Yes Med Rec Note Co-signed by Attending: Coverage Notice Comment: [place] Last DP export: 09/25/18 1:06 p Patient Name: DEYVI PHILLIPS Page 00502 at 1414 All edits/amendments must be made on the electronic document DICTATION DATE: 09/25/181413 BOX TOE STITCHER: SANGEETHA 09/25/18 1414 RPT#: [id number] [place] DATE: STATUS: ADM IN [facility] [address] [place] [address] END OF REPORT
--- NOTE | 2018-09-25 15:00 | NUR ---
RESTING QUIETLY IN BED. DENIES NEEDS.
[2018-09-25] MEDS ORDERED: ELIQUIS2.5 MG PO (15:45)
[2018-09-25] MEDS ORDERED: oxyCODONE IR PO (15:45)
[2018-09-25] MEDS ORDERED: KEFLEX500 MG PO (15:46)
--- NOTE | 2018-09-25 15:48 | MORECARE ---
CASE MANAGEMENT DISCHARGE SUMMARY PATIENT: DEYVI PHILLIPS UNIT: [id number] ADM DATE: 09/22/18 AGE: 53 : 61 SEX: F ROOM/BED: D.2205 AUTHOR: ARTURO SHEN PHYSICIAN: REFERRING PHYSICIAN: CARTER ONEILL DO DATE OF SERVICE: 09/25/18 Discharge Plan Patient Name: DEYVI PHILLIPS Facility: [facility]:[place] : 1965 Planned Disposition: Nursing Home Facility Anticipated Discharge Date: Discharge Date: Expected LOS: Initial Reviewer: [email or web address] Initial Review Date: 09/22/2018 Generated: 09/25/18 4:48 pm Comments DCP- Discharge Planning Updated by [email or web address]: Cora Solis on 09/25/18 2:[address] AUTH HAS BEEN RECEIVED FROM [facility], PATIENT WILL BE DISCHARGED TO [facility] TO A SKILLED BED FOR REHAB. [facility] WILL PICK HER UP CM TO FOLLOW AND ASSIST WITH DC PLANNING DCP- Discharge Planning Updated by [email or web address]: Cora Solis on 09/25/18 1:[address] Patient Name: DEYVI PHILLIPS Admission Status: Elective Accout number: [id number] Admission Date: 09-22-2018 : 1965 Admission Diagnosis:UNILATERAL PRIMARY OSTEOARTHRITIS, LEFT KNEE Attending: CARTER ONEILL Current LOS: 3 Anticipated DC Date: Planned Disposition: Nursing Home Facility Primary Insurance: [facility] MEDICARE SOLUTIONS Discharge Planning Comments: CM met with patient to complete initial dc planning assessment. CM educated patient on the CM role and verbal consent given by patient to complete assessment. Patient lives at home where she is independent with her care. She does live home alone. At discharge patient plans to go to [facility] to do her rehab and feels this is a safe discharge. CM discussed availability of home health, rehab services, and medical equipment. She has a walker and a BSC, CPM and Ice Machine that was set up be Dr Oneill's office. IMM served and explained. SOUTH signed and placed in chart. Patient denied known discharge needs at this time. CM will continue to follow and will assist as needed with dc plans/needs. Testing Lead: Cora Solis DCPIA - Discharge Planning Initial Assessment Updated by [email or web address]: Cora Solis on 09/25/18 2:04 pm * Is the patient Alert and Oriented? Yes * How many steps to enter\exit or inside your home? * PCP REMINGTON * [facility] [address] * Preadmission Environment Home Alone * ADLs Independent * Equipment Bedside Commode Rolling Walker * List name and contact numbers for known caregivers / representatives who currently or will assist patient after discharge: CPM ICE MACHINE * Verbal permission to speak to the caregivers and representatives has been obtained from the patient. N/A * Community resources currently utilized None * Additional services required to return to the preadmission environment? Yes * Can the patient safely return to the preadmission environment? No * Has this patient been hospitalized within the prior 30 days at any hospital? No Coverage Notice Reviewer: [email or web address] Hernandez Solis Notice Issued Date-Time: 09/25/2018 8:50 Notice Type: IM Discharge Notice Notice Delivered To: Patient Relationship to Patient: Supervisor Rice Milling Name: Delivery Method: HAND - Hand Delivered Divya Days: Prior Verbal Notification: Recipient Understood Notice: Yes Recipient Signature: Yes Med Rec Note Co-signed by Attending: Coverage Notice Comment: Reviewer: [id number] Hernandez Solis Notice Issued Date-Time: 09/25/2018 8:50 Notice Type: Patient Choice Letter Notice Delivered To: Patient Relationship to Patient: Supervisor Rice Milling Name: Delivery Method: HAND - Hand Delivered Divya Days: Prior Verbal Notification: Recipient Understood Notice: Yes Recipient Signature: Yes Med Rec Note Co-signed by Attending: Coverage Notice Comment: [facility] Last DP export: 09/25/18 1:14 p Patient Name: DEYVI PHILLIPS Page 52739 at 1548 All edits/amendments must be made on the electronic document DICTATION DATE: 09/25/18 1548 SHOOTER'S HELPER: SANGEETHA 09/25/18 1548 RPT#: [id number] [place] DATE: STATUS: ADM IN [facility] [address] [place] [address] END OF REPORT
--- NOTE | 2018-09-25 16:01 | NUR ---
DRESSING CHANGED TO LEFT KNEE PER ORDERS. INCISION IS CLEAN DRY AND WELL APPROXIMATED. SL TO LEFT FOREARM D/C WITH CATHETER INTACT.
--- NOTE | 2018-09-25 16:26 | MORECARE ---
CASE MANAGEMENT DISCHARGE SUMMARY PATIENT: DEYVI PHILLIPS UNIT: [id number] ADM DATE: 09/22/18 AGE: 53 : 61 SEX: F ROOM/BED: D.2205 AUTHOR: AC,DOC PHYSICIAN: REFERRING PHYSICIAN: CARTER ONEILL DO DATE OF SERVICE: 09/25/18 Discharge Plan Patient Name: DEYVI PHILLIPS Facility: [facility]:[place] : 1965 Planned Disposition: Residential Facility Anticipated Discharge Date: Discharge Date: Expected LOS: Initial Reviewer: [email or web address] Initial Review Date: 09/22/2018 Generated: 09/25/18 5:26 pm Comments DCP- Discharge Planning Updated by [email or web address]: Nicole Partida on 09/25/18 3:[address] Discharging today to [facility] to a skilled bed, clinical faxed. DCP- Discharge Planning Updated by [email or web address]: Cora Solis on 09/25/18 2:[address] AUTH HAS BEEN RECEIVED FROM [facility], PATIENT WILL BE DISCHARGED TO [facility] TO A SKILLED BED FOR REHAB. [facility] WILL PICK HER UP CM TO FOLLOW AND ASSIST WITH DC PLANNING DCP- Discharge Planning Updated by [email or web address]: Cora Solis on 09/25/18 1:[address] Patient Name: DEYVI PHILLIPS Admission Status: Elective Accout number: [id number] Admission Date: 09-22-2018 : 1965 Admission Diagnosis:UNILATERAL PRIMARY OSTEOARTHRITIS, LEFT KNEE Attending: CARTER ONEILL Current LOS: 3 Anticipated DC Date: Planned Disposition: Residential Facility Primary Insurance: [facility] MEDICARE SOLUTIONS Discharge Planning Comments: CM met with patient to complete initial dc planning assessment. CM educated patient on the CM role and verbal consent given by patient to complete assessment. Patient lives at home where she is independent with her care. She does live home alone. At discharge patient plans to go to [facility] to do her rehab and feels this is a safe discharge. CM discussed availability of home health, rehab services, and medical equipment. She has a walker and a BSC, CPM and Ice Machine that was set up be Dr Oneill's office. IMM served and explained. NATASHA signed and placed in chart. Patient denied known discharge needs at this time. CM will continue to follow and will assist as needed with dc plans/needs. Product Scientist: Cora Solis DCPIA - Discharge Planning Initial Assessment Updated by [email or web address]: Cora Solis on 09/25/18 2:04 pm * Is the patient Alert and Oriented? Yes * How many steps to enter\exit or inside your home? * PCP FARO * Pharm[facility] [address] * Preadmission Environment Home Alone * ADLs Independent * Equipment Bedside Commode Rolling Walker * List name and contact numbers for known caregivers / representatives who currently or will assist patient after discharge: CPM ICE MACHINE * Verbal permission to speak to the caregivers and representatives has been obtained from the patient. N/A * Community resources currently utilized None * Additional services required to return to the preadmission environment? Yes * Can the patient safely return to the preadmission environment? No * Has this patient been hospitalized within the prior 30 days at any hospital? No Coverage Notice Reviewer: [email or web address] Hernandez Solis Notice Issued Date-Time: 09/25/2018 8:50 Notice Type: IM Discharge Notice Notice Delivered To: Patient Relationship to Patient: Solar Energy Systems Engineer Name: Delivery Method: HAND - Hand Delivered Divya Days: Prior Verbal Notification: Recipient Understood Notice: Yes Recipient Signature: Yes Med Rec Note Co-signed by Attending: Coverage Notice Comment: Reviewer: [email or web address] Solis Notice Issued Date-Time: 09/25/2018 8:50 Notice Type: Patient Choice Letter Notice Delivered To: Patient Relationship to Patient: Solar Energy Systems Engineer Name: Delivery Method: HAND - Hand Delivered Divya Days: Prior Verbal Notification: Recipient Understood Notice: Yes Recipient Signature: Yes Med Rec Note Co-signed by Attending: Coverage Notice Comment: elham Last DP export: 09/25/18 2:48 p Patient Name: DEYVI PHILLIPS Page [phone] at 1626 All edits/amendments must be made on the electronic document DICTATION DATE: 09/25/181625 SENIOR INTERNATIONAL TAX MANAGER: SANGEETHA 09/25/181625 RPT#: [id number] DC DATE: STATUS: ADM IN [facility] [address] [place] [address] END OF REPORT
--- NOTE | 2018-09-25 16:42 | NUR ---
REPORT CALLED CALDERON SPENCE LPN AT [facility]. ALL QUESTIONS ANSWERED. DISCHARGE INSTRUCTIONS GIVEN BOTH VERBALLY AND WRITTEN. ALL QUESTIONS ANSWERED. PATIENT VERBALIZED UNDERSTANDING OF SAME. ALL BELONGINGS WITH PATIENT. NEEDED PRESCRIPTIONS SENT TO [facility].
== END 2018-09-25 16:43 | DRG 470 ==
LOC: D.SDCHOLD 09-16 10:00 → D.MS 09-22 11:45 → D.SDCHOLD 09-22 13:00 → D.MS 09-22 17:39
PROVIDERS: Emergency Medicine; Orthopaedic Surgery; ADMIT Orthopaedic Surgery; ATTEND Orthopaedic Surgery
PROC: 0SRD0J9 Replacement of Left Knee Joint with Synthetic Substitute, Cemented, Open Approach (ICD-10-PCS; principal; 2018-09-22 13:00)
DX: M17.12 Unilateral primary osteoarthritis, left knee (principal); F17.213 Nicotine dependence, cigarettes, with withdrawal; D64.9 Anemia, unspecified; E03.9 Hypothyroidism, unspecified; E66.9 Obesity, unspecified

== ENCOUNTER 2019-05-25 19:58 | Inpatient (IN) | payer MEDICARE ==
[~2019-05-25] VITALS: Ht 165.1 cm; Wt 142.3 kg
[~2019-05-25 19:58] MED LIST changes: +CALCIUM 600 +1 EAC3 PO; +ELIQUIS2.5 MG PO; +KEFLEX500 MG PO; +LIPITOR20 MG PO; +LOMOTIL 2.5-0.1 EAC1 PO; +ZOFRAN ODT4 MG/UDTAB PO; +oxyCODONE IR PO
[2019-05-25] MEDS ORDERED: ASPIRIN325 MG PO (20:03)
--- NOTE | 2019-05-25 20:25 | NUR ---
PT PLACED IN T2 ON DROPLET PRECAUTIONS. RSV, FLU AND STREP OBTAINED.
[2019-05-25 21:10] LABS: CALC OSMOLALITY 287 mosm/kg (275-300); CALCIUM 7.9 mg/dL (8.5-10.1); CARBON DIOXIDE 28.5 mmol/L (21.0-32.0); CHLORIDE - SERUM 106 mmol/L (98-107); CREATININE - SERUM 0.9 mg/dL (0.6-1.3); GLUCOSE 138 mg/dL (74-106); POTASSIUM - SERUM 3.8 mmol/L (3.5-5.1); SODIUM 144 mmol/L (136-145); UREA NITROGEN 11 mg/dL (7-18); eGFR NON AFRICAN AMERICAN 69 mL/min (90-120)
[2019-05-25 21:13] LABS: APTT 28.2 SECONDS (22.8-39.4); PROTIME 13.2 SECONDS (11.6-15.0)
--- NOTE | 2019-05-25 21:14 | NUR ---
RESPIRATORY IN ROOM PROVIDING UPDRAFT N95/GOGGLES/GOWN GLOVES PPE USED. PATIENT TOLERATING IT WELL.
[2019-05-25 21:15] LABS: D-DIMER-QUANTITATIVE 0.44 ug/mLFEU (0.20-0.54)
[2019-05-25 21:16] VITALS: BP 143/69
[2019-05-25 21:18] LABS: HEMATOCRIT 41.5 % (36.0-48.0); HEMOGLOBIN 12.5 g/dL (12-16); MCH 28.1 pg (26.0-34.0); MCHC 30.1 g/dL (31.0-37.0); MCV 93.3 fL (80.0-100.0); MEAN PLATELET VOLUME 10.8 fL (7.4-10.4); NEUTROPHILS 46.9 % (40-80); PLATELET COUNT 219 10x3/uL (130-400); RBC 4.45 10x6/uL (4.00-5.40); RDW 16.3 % (11.5-14.5)
[2019-05-25 21:26] LABS: ALKALINE PHOSPHATASE 100 U/L (30-120); ALT (SGPT) 24 U/L (10-68); BILIRUBIN - TOTAL 0.26 mg/dL (0.2-1.3); C-REACTIVE PROTEIN 6.8 mg/dL (0.0-0.9); CKMB 0.4 U/L (0.0-3.6); CREATINE KINASE 232 UL (21-215); MAGNESIUM - SERUM 2.2 mg/dL (1.8-2.4); PRO BNP 69 pg/mL (0-125); PROTEIN - SERUM 7.2 g/dL (6.4-8.2); TROPONIN-I < 0.017 ng/mL (0.000-0.060)
[2019-05-25 21:56] VITALS: BP 129/58
--- NOTE | 2019-05-25 21:57 | NUR ---
PATIENT RESTING COMFORTABLE O2 SAT 97%. NO DISTRESS NOTED
[2019-05-26 00:47] LABS: BILIRUBIN NEGATIVE (NEGATIVE); GLUCOSE NEGATIVE (NEGATIVE); KETONE NEGATIVE (NEGATIVE); NITRITE NEGATIVE (NEGATIVE); SPECIFIC GRAVITY 1.015 (1.005-1.020); UROBILINOGEN NORMAL (NORMAL)
[2019-05-26 00:50] LABS: BACTERIA FEW /hpf (NEGATIVE); EPITHELIAL CELLS 0-5 /hpf (0-5); RED CELLS - URINE 0-5 /hpf (0-5); WHITE CELLS - URINE 0-5 /hpf (NEGATIVE)
--- NOTE | 2019-05-26 01:06 | NUR ---
SPOKE WITH DR. NORWOOD- STATES PT IS NOT A PUI.
[2019-05-26 01:17] VITALS: BP 114/57; Ht 165.1 cm; Wt 142.3 kg
--- NOTE | 2019-05-26 01:20 | NUR ---
RECIEVED REPORT FROM ER. PT ARRIVED BY STRETCHER. AAOX4, AFVSS, 97 ON 2L O2. NO S/S OF RT DISTRESS. RR EVEN AND UNLABORED. ZITHROMAX ADMINISTERED ON ARRIVAL TO FLOOR. INITIAL ASSESMENT COMPLETED. PT ORIENTED TO ROOM. PT DENIES ANY FURTHER NEEDS AT THIS TIME. WILL CPOC. CL WITHIN REACH, BED IN LOW, SR UP X2.
--- NOTE | 2019-05-26 03:20 | NUR ---
PT C/O OF IV HURTING. REMOVED R.WRIST PIV AND RESTARTED NEW PIV ON LFA X1 STICK, 22G. PT TOLERATE WELL WILL CTM.
[2019-05-26 04:56] VITALS: BP 127/70
[2019-05-26 06:40] LABS: HEMATOCRIT 38.9 % (36.0-48.0); HEMOGLOBIN 11.9 g/dL (12-16); MCH 28.6 pg (26.0-34.0); MCHC 30.6 g/dL (31.0-37.0); MCV 93.5 fL (80.0-100.0); MEAN PLATELET VOLUME 10.3 fL (7.4-10.4); NEUTROPHILS 46.2 % (40-80); PLATELET COUNT 196 10x3/uL (130-400); RBC 4.16 10x6/uL (4.00-5.40); RDW 16.4 % (11.5-14.5); WBC 6.3 10x3/uL (4.8-10.8)
[2019-05-26 07:03] LABS: CALC OSMOLALITY 283 mosm/kg (275-300); CALCIUM 7.8 mg/dL (8.5-10.1); CARBON DIOXIDE 30.9 mmol/L (21.0-32.0); CHLORIDE - SERUM 106 mmol/L (98-107); CREATININE - SERUM 0.8 mg/dL (0.6-1.3); GLUCOSE 105 mg/dL (74-106); MAGNESIUM - SERUM 2.2 mg/dL (1.8-2.4); PHOSPHOROUS 3.2 mg/dL (2.5-4.9); PRO BNP 63 pg/mL (0-125); SODIUM 143 mmol/L (136-145); UREA NITROGEN 10 mg/dL (7-18); eGFR NON AFRICAN AMERICAN 78 mL/min (90-120)
[2019-05-26 08:23] VITALS: BP 124/76
--- NOTE | 2019-05-26 11:15 | MORECARE ---
CASE MANAGEMENT DISCHARGE SUMMARY PATIENT: DEYVI PHILLIPS UNIT: [id number] ADM DATE: 05/26/19 AGE: 54 : 61 SEX: F ROOM/BED: D.2102 AUTHOR: AC,DOC PHYSICIAN: REFERRING PHYSICIAN: ONELIA PACHECO MD DATE OF SERVICE: 05/26/19 Discharge Plan Patient Name: DEYVI PHILLIPS Facility: [facility]:[place] : 1965 Planned Disposition: Home Anticipated Discharge Date: Discharge Date: Expected LOS: Initial Reviewer: [email or web address] Initial Review Date: 05/26/2019 Generated: 05/26/19 12:14 pm Comments DCP- Discharge Planning Updated by [id number]: Kiko Avila on 05/26/19 10:[address] Patient Name: DEYVI PHILLIPS Admission Status: ER Accout number: [id number] Admission Date: 05-26-2019 : 1965 Admission Diagnosis: Attending: ONELIA PACHECO Current LOS: 1 Anticipated DC Date: Planned Disposition: Home Primary Insurance: [facility] MEDICARE SOLUTIONS Discharge Planning Comments: CM MET WITH PT IN ROOM TO DISCUSS DISCHARGE PLANNING AND NEEDS. PT REPORTS LIVING AT HOME INDEPENDENTLY; ALSO IN THE HOME IS ADULT DAUGHTER. PT HAS BEDSIDE COMMODE WITH NO MEDICAL EQUIPMENT PROVIDER PREFERENCE. PT HAS NO OUTSIDE SERVICES ASSISTING IN THE HOME. CM DISCUSSED AVAILABILITY OF HOME HEALTH, REHAB SERVICES AND MEDICAL EQUIPMENT. PT DENIES KNOWN DISCHARGE NEEDS, REPORTS HER DAUGHTER WILL PICK HER UP FOR DISCHARGE HOME. PROVIDER FOR MEDICAL EQUIPMENT REVIEWED, PT HAS NOT CHOICE ON MEDICAL EQUIPMENT PROVIDER IF SHE NEEDS HOME OR PORTABLE OXYGEN AT DISCHARGE. CHOICE SIGNED FOR NO PROVIDER PREFERNECE. PT MAY NEED WALK TESTING AND ARRANGEMENT FOR HOME/PORTABLE OXYGEN IF NOT ABLE WEAN PRIOR TO DISCHARGE.PT PLANS TO DISCHARGE HOME WITH FAMILY. FAMILY TO TRANSPORT HOME. CM TO CONTINUE TO FOLLOW AND ASSIST IF NEEDED. Executive Administrative Asst: Kiko Avila DCPIA - Discharge Planning Initial Assessment Updated by [email or web address]: Kiko Avila on 05/26/19 11:10 am * Is the patient Alert and Oriented? Yes * How many steps to enter\exit or inside your home? * PCP DR. MACEDO * Pharmacy [facility] * Preadmission Environment Home with Family * ADLs Independent * Equipment Bedside Commode * Other Equipment NO MEDICAL EQUIPMENT PROVIDER PREFERENCE * List name and contact numbers for known caregivers / representatives who currently or will assist patient after discharge: MO GREEN, DTR, * Verbal permission to speak to the caregivers and representatives has been obtained from the patient. N/A * Community resources currently utilized None * Please name any agencies selected above. NONE * Additional services required to return to the preadmission environment? No * Can the patient safely return to the preadmission environment? Yes * Has this patient been hospitalized within the prior 30 days at any hospital? No Coverage Notice Reviewer: [id number] Hernandez Recinos Notice Issued Date-Time: 05/26/2019 9:55 Notice Type: Patient Choice Letter Notice Delivered To: Patient Relationship to Patient: Ammonia Box Operator Name: Delivery Method: HAND - Hand Delivered Divya Days: Prior Verbal Notification: Recipient Understood Notice: Yes Recipient Signature: Yes Med Rec Note Co-signed by Attending: Coverage Notice Comment: ANY 02 PROVIDER Patient Name: DEYVI PHILLIPS Page [phone] at 1115 All edits/amendments must be made on the electronic document DICTATION DATE: 05/26/19 1114 EMPLOYEE BENEFITS COORDINATOR: SANGEETHA 05/26/19 1114 RPT#: [id number] DC DATE: STATUS: ADM IN [facility] [address] [place] [address] END OF REPORT
--- NOTE | 2019-05-26 13:05 | NUR ---
RESPIRATORY CULTURE COLLECTED AND SENT TO LAB ORDERED.
[2019-05-26 13:27] VITALS: BP 147/77
--- NOTE | 2019-05-26 13:32 | NUR ---
PTS IVPB ANBX COMPLETED. DISCONNECTED PT FROM IV POLE AND SL L.HAND PIV. PT VOICED THANKS AND IS RESTING QUIETLY IN BED. NO CURRENT NEEDS. WILL CTM.
--- NOTE | 2019-05-26 22:00 | NUR ---
PT IN BED, AAO X 3, RESP EVEN AND UNLABORED. NO DISTRESS NOTED, CL IN REACH, SR UP X 2.
[2019-05-27] VITALS: BP 129/48
--- NOTE | 2019-05-27 02:31 | NUR ---
I have reviewed this patient and I concur with the Shift Assessment completed by the Licensed Practical Nurse today this shift.
[2019-05-27 04:00] VITALS: BP 133/59
[2019-05-27 05:53] LABS: BASOPHILS 0.2 % (0-2); EOSINOPHILS 0 % (0-7); HEMATOCRIT 39.9 % (36.0-48.0); HEMOGLOBIN 12.1 g/dL (12-16); IMMATURE GRANULOCYTES 0.6 % (0-5); LYMPHOCYTES 21.1 % (15-50); MCH 28.3 pg (26.0-34.0); MCHC 30.3 g/dL (31.0-37.0); MCV 93.4 fL (80.0-100.0); MEAN PLATELET VOLUME 10.7 fL (7.4-10.4); MONOCYTES 2.5 % (2-11); NEUTROPHILS 75.6 % (40-80); RBC 4.27 10x6/uL (4.00-5.40); RDW 16.6 % (11.5-14.5); WBC 5.1 10x3/uL (4.8-10.8)
[2019-05-27 06:31] LABS: CALCIUM 8.1 mg/dL (8.5-10.1); CARBON DIOXIDE 27.1 mmol/L (21.0-32.0); CREATININE - SERUM 0.9 mg/dL (0.6-1.3); MAGNESIUM - SERUM 2.3 mg/dL (1.8-2.4); PHOSPHOROUS 2.9 mg/dL (2.5-4.9)
[2019-05-27 06:34] LABS: POTASSIUM - SERUM 5.1 mmol/L (3.5-5.1)
[2019-05-27 06:52] LABS: PLATELET COUNT 266 10x3/uL (130-400)
--- NOTE | 2019-05-27 08:11 | MORECARE ---
CASE MANAGEMENT DISCHARGE SUMMARY PATIENT: DEYVI PHILLIPS UNIT: [id number] ADM DATE: 05/26/19 AGE: 54 : 61 SEX: F ROOM/BED: D.2101 AUTHOR: AC,DOC PHYSICIAN: REFERRING PHYSICIAN: ONELIA PACHECO MD DATE OF SERVICE: 05/27/19 Discharge Plan Patient Name: DEYVI PHILLIPS Facility: [facility]:[place] : 1965 Planned Disposition: Home Anticipated Discharge Date: Discharge Date: Expected LOS: Initial Reviewer: [email or web address] Initial Review Date: 05/26/2019 Generated: 05/27/19 9:11 am Comments DCP- Discharge Planning Updated by [email or web address]: Kiko Avila on 05/26/19 10:[address] Patient Name: DEYVI PHILLIPS Admission Status: ER Accout number: [id number] Admission Date: 05-26-2019 : 1965 Admission Diagnosis: Attending: ONELIA PACHECO Current LOS: 1 Anticipated DC Date: Planned Disposition: Home Primary Insurance: [facility] MEDICARE SOLUTIONS Discharge Planning Comments: CM MET WITH PT IN ROOM TO DISCUSS DISCHARGE PLANNING AND NEEDS. PT REPORTS LIVING AT HOME INDEPENDENTLY; ALSO IN THE HOME IS ADULT DAUGHTER. PT HAS BEDSIDE COMMODE WITH NO MEDICAL EQUIPMENT PROVIDER PREFERENCE. PT HAS NO OUTSIDE SERVICES ASSISTING IN THE HOME. CM DISCUSSED AVAILABILITY OF HOME HEALTH, REHAB SERVICES AND MEDICAL EQUIPMENT. PT DENIES KNOWN DISCHARGE NEEDS, REPORTS HER DAUGHTER WILL PICK HER UP FOR DISCHARGE HOME. PROVIDER FOR MEDICAL EQUIPMENT REVIEWED, PT HAS NOT CHOICE ON MEDICAL EQUIPMENT PROVIDER IF SHE NEEDS HOME OR PORTABLE OXYGEN AT DISCHARGE. CHOICE SIGNED FOR NO PROVIDER PREFERNECE. PT MAY NEED WALK TESTING AND ARRANGEMENT FOR HOME/PORTABLE OXYGEN IF NOT ABLE WEAN PRIOR TO DISCHARGE.PT PLANS TO DISCHARGE HOME WITH FAMILY. FAMILY TO TRANSPORT HOME. CM TO CONTINUE TO FOLLOW AND ASSIST IF NEEDED. Test Desk Trouble Locator: Kiko Avila DCPIA - Discharge Planning Initial Assessment Updated by [email or web address]: Kiko Avila on 05/26/19 11:10 am * Is the patient Alert and Oriented? Yes * How many steps to enter\exit or inside your home? * PCP DR. MACEDO * Pharmacy [facility] * Preadmission Environment Home with Family * ADLs Independent * Equipment Bedside Commode * Other Equipment NO MEDICAL EQUIPMENT PROVIDER PREFERENCE * List name and contact numbers for known caregivers / representatives who currently or will assist patient after discharge: MO GREEN, DTR, * Verbal permission to speak to the caregivers and representatives has been obtained from the patient. N/A * Community resources currently utilized None * Please name any agencies selected above. NONE * Additional services required to return to the preadmission environment? No * Can the patient safely return to the preadmission environment? Yes * Has this patient been hospitalized within the prior 30 days at any hospital? No Coverage Notice Reviewer: [email or web address] Hernandez Recinos Notice Issued Date-Time: 05/26/2019 9:55 Notice Type: Patient Choice Letter Notice Delivered To: Patient Relationship to Patient: Nurse Companion Name: Delivery Method: HAND - Hand Delivered Divya Days: Prior Verbal Notification: Recipient Understood Notice: Yes Recipient Signature: Yes Med Rec Note Co-signed by Attending: Coverage Notice Comment: ANY 02 PROVIDER Last DP export: 05/26/19 10:15 a Patient Name: DEYVI PHILLIPS Page 25668 at 0811 All edits/amendments must be made on the electronic document DICTATION DATE: 05/27/19 08 PULLER OVER: SANGEETHA 05/27/19 08 RPT#: [id number] DC DATE: STATUS: ADM IN [facility] [address] [place] [address] END OF REPORT
[2019-05-27 09:16] VITALS: BP 157/73
[2019-05-27 14:18] VITALS: BP 174/90
[2019-05-27 18:14] VITALS: BP 156/84
[2019-05-27 20:00] VITALS: BP 142/79
[2019-05-28] VITALS: BP 147/79
--- NOTE | 2019-05-28 00:06 | NUR ---
PATIENT IS ALERT AND ORENTED X 3 ABLE TO VOICE NEEDS AND WANTS TO STAFF. REMAINS ON O2 AT 3L/PERMIN. IV TO LEFT HAND WITH NO REDNESS NOTED NO C/O PAIN AT SITE, CALL LIGHT AND WATER IN REACH. BED LOW,
[2019-05-28 04:24] LABS: BASOPHILS 0.1 % (0-2); EOSINOPHILS 0 % (0-7); HEMATOCRIT 38.4 % (36.0-48.0); HEMOGLOBIN 11.6 g/dL (12-16); IMMATURE GRANULOCYTES 0.3 % (0-5); LYMPHOCYTES 12.5 % (15-50); MCH 28.2 pg (26.0-34.0); MCHC 30.2 g/dL (31.0-37.0); MCV 93.2 fL (80.0-100.0); MEAN PLATELET VOLUME 11.1 fL (7.4-10.4); MONOCYTES 5.9 % (2-11); NEUTROPHILS 81.2 % (40-80); PLATELET COUNT 299 10x3/uL (130-400); RBC 4.12 10x6/uL (4.00-5.40); RDW 16.7 % (11.5-14.5)
[2019-05-28 04:30] LABS: WBC 9.3 10x3/uL (4.8-10.8)
[2019-05-28 04:45] LABS: ANION GAP 12.3 mmol/L (8-16); CARBON DIOXIDE 26.4 mmol/L (21.0-32.0); CREATININE - SERUM 0.9 mg/dL (0.6-1.3); MAGNESIUM - SERUM 2.3 mg/dL (1.8-2.4); POTASSIUM - SERUM 4.7 mmol/L (3.5-5.1)
--- NOTE | 2019-05-28 07:56 | NUR ---
LAYING ON LEFT SIDE, DENIES NEEDS AT THIS TIME. ON 3L PER NC WITH HUMIDIFIED WATER GOING. LEFT HAND SEENW ITH PIV SALINE LOCK. ON EP, LABS WNL. CALL LIGHT IN USE. WILL CONTINUE TO MONITOR.
[2019-05-28 08:48] VITALS: BP 169/70
--- NOTE | 2019-05-28 10:23 | NUR ---
COMPLETE LINEN CHANGE DONE.
[2019-05-28] MEDS ORDERED: LEVAQUIN750 MG PO (10:38)
[2019-05-28] MEDS ORDERED: VENTOLIN HFA [SP8 GM INH (10:39)
[2019-05-28] MEDS ORDERED: STERAPRED DS 1010 MG PO (10:39)
[2019-05-28] MEDS ORDERED: PROTONIX40 MG PO (10:40)
--- NOTE | 2019-05-28 12:42 | NUR ---
DISCHARGE INSTRUCTIONS GIVEN TO PT. PT HAS NO FURTHER QUESTIONS. CHART COPY SIGNED. LEFT HAND IV DC'D WITH CATH INTACT. PT TO CALL RIDE AND LET STAFF KNOW BY USING CALL LIGHT WHEN RIDE IS OUT FRONT AND WE WILL TAKE HER OUT VIA WC.
[2019-05-28 13:07] VITALS: BP 148/74
--- NOTE | 2019-05-28 13:49 | NUR ---
ALL BELONGINGS BAGGED AND WITH PT. WHEELED PT OUT AT THIS TIME.
--- NOTE | 2019-05-28 15:23 | MORECARE ---
CASE MANAGEMENT DISCHARGE SUMMARY PATIENT: DEYVI PHILLIPS UNIT: [id number] ADM DATE: 05/26/19 AGE: 54 : 61 SEX: F ROOM/BED: D.2103 AUTHOR: AC,DOC PHYSICIAN: REFERRING PHYSICIAN: ONELIA PACHECO MD DATE OF SERVICE: 05/28/19 Discharge Plan Patient Name: DEYVI PHILLIPS Facility: [facility]:[place] : 1965 Planned Disposition: Home Anticipated Discharge Date: 05/28/19 Discharge Date: 05/28/2019 Expected LOS: 2 Initial Reviewer: [id number] Initial Review Date: 05/26/2019 Generated: 05/28/19 4:22 pm Comments DCP- Discharge Planning Updated by [email or web address]: Kiko Avila on 05/26/19 10:[address] Patient Name: DEYVI PHILLIPS Admission Status: ER Accout number: [id number] Admission Date: 05-26-2019 : 1965 Admission Diagnosis: Attending: ONELIA PACHECO Current LOS: 1 Anticipated DC Date: Planned Disposition: Home Primary Insurance: [facility] MEDICARE SOLUTIONS Discharge Planning Comments: CM MET WITH PT IN ROOM TO DISCUSS DISCHARGE PLANNING AND NEEDS. PT REPORTS LIVING AT HOME INDEPENDENTLY; ALSO IN THE HOME IS ADULT DAUGHTER. PT HAS BEDSIDE COMMODE WITH NO MEDICAL EQUIPMENT PROVIDER PREFERENCE. PT HAS NO OUTSIDE SERVICES ASSISTING IN THE HOME. CM DISCUSSED AVAILABILITY OF HOME HEALTH, REHAB SERVICES AND MEDICAL EQUIPMENT. PT DENIES KNOWN DISCHARGE NEEDS, REPORTS HER DAUGHTER WILL PICK HER UP FOR DISCHARGE HOME. PROVIDER FOR MEDICAL EQUIPMENT REVIEWED, PT HAS NOT CHOICE ON MEDICAL EQUIPMENT PROVIDER IF SHE NEEDS HOME OR PORTABLE OXYGEN AT DISCHARGE. CHOICE SIGNED FOR NO PROVIDER PREFERNECE. PT MAY NEED WALK TESTING AND ARRANGEMENT FOR HOME/PORTABLE OXYGEN IF NOT ABLE WEAN PRIOR TO DISCHARGE.PT PLANS TO DISCHARGE HOME WITH FAMILY. FAMILY TO TRANSPORT HOME. CM TO CONTINUE TO FOLLOW AND ASSIST IF NEEDED. Sleeve Ironer: Kiko Avila DCPIA - Discharge Planning Initial Assessment Updated by [id number]: Kiko Avila on 05/26/19 11:10 am * Is the patient Alert and Oriented? Yes * How many steps to enter\exit or inside your home? * PCP DR. MACEDO * Pharmacy [facility] [address] * Preadmission Environment Home with Family * ADLs Independent * Equipment Bedside Commode * Other Equipment NO MEDICAL EQUIPMENT PROVIDER PREFERENCE * List name and contact numbers for known caregivers / representatives who currently or will assist patient after discharge: MO NORMA, DTR, * Verbal permission to speak to the caregivers and representatives has been obtained from the patient. N/A * Community resources currently utilized None * Please name any agencies selected above. NONE * Additional services required to return to the preadmission environment? No * Can the patient safely return to the preadmission environment? Yes * Has this patient been hospitalized within the prior 30 days at any hospital? No Coverage Notice Reviewer: [email or web address] Hernandez Recinos Notice Issued Date-Time: 05/26/2019 9:55 Notice Type: Patient Choice Letter Notice Delivered To: Patient Relationship to Patient: Parts Counterperson Name: Delivery Method: HAND - Hand Delivered Divya Days: Prior Verbal Notification: Recipient Understood Notice: Yes Recipient Signature: Yes Med Rec Note Co-signed by Attending: Coverage Notice Comment: ANY 02 PROVIDER Last DP export: 05/27/19 7:11 a Patient Name: DEYVI PHILLIPS Page [phone] at 1523 All edits/amendments must be made on the electronic document DICTATION DATE: 05/28/191521 WINDOWS SUPPORT ENGINEER: SANGEETHA 05/28/191521 RPT#: [id number] DC DATE:05/28/19 STATUS: DIS IN [address] [place] [address] END OF REPORT
== END 2019-05-28 13:50 | disposition home or self-care (01) | DRG 177 ==
LOC: D.ER 19:58 → D.M2 05-26 00:48
PROVIDERS: Family Medicine; ADMIT Internal Medicine Nephrology; ATTEND Internal Medicine Nephrology
DX: J15.6 Pneumonia due to other Gram-negative bacteria (principal); J96.01 Acute respiratory failure with hypoxia; J96.02 Acute respiratory failure with hypercapnia; Z68.41 Body mass index [BMI] 40.0-44.9, adult; J44.1 Chronic obstructive pulmonary disease with (acute) exacerbation; J44.0 Chronic obstructive pulmonary disease with (acute) lower respiratory infection; F17.213 Nicotine dependence, cigarettes, with withdrawal; E66.01 Morbid (severe) obesity due to excess calories; E03.9 Hypothyroidism, unspecified; G89.29 Other chronic pain; M54.9 Dorsalgia, unspecified; M19.90 Unspecified osteoarthritis, unspecified site; E78.5 Hyperlipidemia, unspecified; J20.9 Acute bronchitis, unspecified